=== PATIENT | male | born 1960 ===

== ENCOUNTER 2017-03-21 16:18 | Inpatient (IN) ==
[2017-03-21] MEDS ORDERED: IOPAMIDOL 100 ML BOTTLE IJ ONE (16:19)
[2017-03-21] MEDS ORDERED: 0.9 % SODIUM CHLORIDE 1,000 ML IV ONE (16:34)
[2017-03-21] MEDS ORDERED: ONDANSETRON 4 MG/2 ML VIAL IV ONE (16:34)
--- NOTE | 2017-03-21 16:35 | Emergency Department Note ---
Abdominal Pain HPI - General Chief Complaint: Abdominal Pain Stated Complaint: n/v abd pain Time Seen by Provider: 03/21/17 16:32 Source: patient Mode of arrival: wheelchair Limitations: no limitations - History of Present Illness HPI Narrative: Patient has had epigastric pain last 3 days with nausea and vomiting. He was sent to [facility] and had a pancreatic stent placed a few weeks ago and is supposed to come out on the . - Related Data Home Medications Medication Instructions Recorded Confirmed Lisinopril [Zestril] 20 mg PO DAILY 11/25/16 03/21/17 oxyCODONE HCL [Oxycodone HCl] 5 mg PO TID 11/25/16 03/21/17 Allergies Allergy/AdvReac Type Severity Reaction Status Date / Time hydrocodone AdvReac Intermediate Vomiting Verified 12/28/16 15:39 meperidine [From Demerol] AdvReac Intermediate Vomiting Verified 12/28/16 15:39 Review of Systems All systems ED: reviewed and negative except as stated. Abdominal Pain PMH - Past Medical History Medical history: Reports: cancer (Bladder), hypertension, other (history of pancreatitis) Family history: Reports: no significant family history, other (Father age 57 from congestive heart failure and father age 37 from a heart attack mother age 56 lung cancer Sister age 50 lymphoma) - Social History Smoking status: Current every day smoker Alcohol use: Reports: None Drug use: Reports: none Physical Exam - General Limitations: no limitations General appearance: alert, in no apparent distress - Head Head exam: atraumatic - Eye Eye exam: Present: normal appearance - ENT ENT exam: normal exam - Neck Neck exam: Present: normal inspection - Chest Chest inspection: Present: normal inspection - Respiratory Respiratory exam: Present: normal lung sounds bilaterally - Cardiovascular Cardiovascular exam: Present: regular rate, normal rhythm, normal heart sounds - Abdominal Exam Abdominal exam: Present: soft, tenderness. Absent: distention, guarding, rebound, rigidity Abdominal tenderness: Present: epigastrium, moderate - Neurological Exam Neurological exam: Present: alert - Psychiatric Psychiatric exam: Present: normal affect, normal mood - Skin Skin exam: Present: warm, dry, intact Course Vital Signs Temperature 96.9 F L 03/21/17 16:21 Pulse Rate 93 H 03/21/17 16:21 Respiratory Rate 20 03/21/17 16:21 Blood Pressure 74/63 03/21/17 16:21 Pulse Oximetry (%) 100 03/21/17 16:21 Temperature 96.9 F L 03/21/17 16:21 Pulse Rate 101 H 03/21/17 18:01 Respiratory Rate 20 03/21/17 19:49 Blood Pressure 114/63 03/21/17 19:46 Pulse Oximetry (%) 92 03/21/17 18:01 Abdominal Pain - MDM Narrative Medical decision making narrative: This patient has uncomplicated pancreatitis and was admitted to the hospital by Dr. Lentz - Lab Data Lab results reviewed: Yes I reviewed the patient's lab results. Result diagrams: 03/21/17 16:40 03/21/17 16:40 Lab Results 03/21/17 03/21/17 Range/Units 16:40 16:40 WBC 14.5 H (4.5-11.0) K/mcL RBC 5.82 (4.50-5.90) M/mcL Hgb 17.8 H (13.5-16.5) g/dL Hct 53.0 (41.0-55.0) % MCV 91.0 (80.0-100.0) fL MCH 30.6 (26.0-34.0) pg MCHC 33.6 (31.0-36.0) g/dL RDW 13.2 (11.5-14.5) % Plt Count 370 (140-440) K/mcL MPV 8.1 (7.4-10.4) fL Gran % 73.2 (38.0-78.0) % Lymph % (Auto) 20.0 (15.5-49.0) % Adams % (Auto) 6.0 (1.0-12.0) % Eos % (Auto) 0.3 (0.0-7.0) % Baso % (Auto) 0.5 (0.0-2.0) % Gran # 10.6 H (1.8-8.0) K/mcL Lymph # (Auto) 2.9 (1.5-4.8) K/mcL Adams # (Auto) 0.9 (0.1-0.9) K/mcL Eos # (Auto) 0 (0.0-0.7) K/mcL Baso # (Auto) 0.1 (0.0-0.3) K/mcL Sodium 131 L (133-145) mmol/L Potassium 4.3 (3.3-5.1) mmol/L Chloride 92 L (96-108) mmol/L Carbon Dioxide 21 L (22-30) mmol/L Anion Gap 18.0 H (8-16) BUN 33 H (6-20) mg/dl Creatinine 1.4 H (0.7-1.2) mg/dl GFR Calculation 56 Glucose 182 H (70-105) mg/dL Calcium 9.9 (8.6-10.4) mg/dl Total Bilirubin 1.0 (0.0-1.0) mg/dL AST 29 (0-37) U/l ALT 37 (0-40) U/l Alkaline Phosphatase 95 (39-117) U/L Total Protein 8.4 (5.9-8.4) gm/dL Albumin 4.5 (3.2-5.2) gm/dL Globulin 3.9 H (2.2-3.7) gm/dL Albumin/Globulin Ratio 1.2 (1.0-2.3) Lipase 155 H (7-60) U/L - Radiology Data Radiology results reviewed: Yes I reviewed the patient's radiology results. Disposition Pt seen by RN CONCURRENT REVIEW/PA only: No Clinical Impression: Pancreatitis Disposition: Xfer As Inpt ([facility]) Condition: Good Time of Disposition: 20:29
[2017-03-21] MEDS: HYDROmorphone 2 MG/ML SYRINGE IV PRN ×4 (16:53→23:11)
[2017-03-21 17:04] LABS: Basophils # (Auto) 0.1 K/mcL (0.0-0.3); Basophils % (Auto) 0.5 % (0.0-2.0); Eosinophils # (Auto) 0 K/mcL (0.0-0.7); Eosinophils % (Auto) 0.3 % (0.0-7.0); Granulocytes % (Auto) 73.2 % (38.0-78.0); Lymphocytes # (Auto) 2.9 K/mcL (1.5-4.8); Mean Corpuscular HGB Conc 33.6 g/dL (31.0-36.0); Mean Corpuscular Hemoglobin 30.6 pg (26.0-34.0); Monocytes # (Auto) 0.9 K/mcL (0.1-0.9); Platelet Count 370 K/mcL (140-440); RBC 5.82 M/mcL (4.50-5.90); Red Cell Distribution Width 13.2 % (11.5-14.5)
[2017-03-21 17:22] LABS: ALT/SGPT 37 U/l (0-40); Albumin 4.5 gm/dL (3.2-5.2); Albumin/Globulin Ratio 1.2 (1.0-2.3); Alkaline Phosphatase 95 U/L (39-117); Blood Urea Nitrogen 33 mg/dl (6-20); Lipase 155 U/L (7-60)
--- NOTE | 2017-03-21 19:17 | Cat Scan Report ---
CLINICAL INFORMATION: History of pancreatitis - abdominal pain COMPARISON: Abdomen and pelvic CT from 12/28/2016 TECHNIQUE: Following enteric contrast, 80 cc of Isovue-300 were injected intravenously, and 60 seconds later, 2.5 mm helical slices were obtained from the mid heart through the subtrochanteric regions. Following reconstruction, 2.5 mm sagittal, coronal and axial reformatted images were processed and reviewed at bone, lung and soft tissue windows. Five minutes later, 5 mm helical slices were obtained from the mid heart through the kidneys and viewed at soft tissue windows. FINDINGS: Lung bases show no abnormality - no effusion. Visualized heart is unremarkable. Images through the abdomen show mild fatty change within the liver which is stable. A 9 mm bilobed cyst right hepatic lobe is again noted. There is more heavily concentrated fat in the region of zeyad hepatis. Gallbladder is surgically absent. The intrahepatic ducts are unremarkable. The common bile duct is moderately dilated (13 mm), but unchanged with findings compatible post cholecystomy papillary stenosis. Spanning up to 6.4 mm Both Wirsing and Santorini duct are moderately dilated and irregular (6 mm) There is a 9 mm stone in the distal portion of worsening duct and a 4 mm stone within a proximal accessory duct. A stent is been placed through the accessory papilla: The proximal end is seen just upstream from the largest stone. It does appear to be improving pancreatic drainage as Santorini duct has decreased from the previous study that time was 7 mm. The pancreatic parenchyma is unremarkable: There is no evidence of inflammation. Both kidneys, adrenal glands, spleen are normal. A 3.7 cm suprarenal abdominal aortic aneurysm is appreciated which is unchanged. There is no free air, free fluid and no adenopathy. The stomach, small large bowel are normal images of pelvis show urinary bladder prostate seminal vesicles to be unremarkable. Bone windows show no osseous abnormality IMPRESSION: 1. Since previous study, a short double pigtail pancreatic stent has been placed into the accessory pancreatic duct pigtail into the Wirsung's/Santorini duct junction. The stent is just upstream from two stones within the Wirsung' duct, nine and 4 mm respectively. The upstream Santorini duct has decreased from 7 to 6 mm implying that the pancreatic stent is functional. The pancreas is otherwise normal and does not demonstrate vito inflammation. 2. Moderate dilatation of the common bile duct compatible with post cholecystomy papillary stenosis - no change. 3. 3.7 cm aneurysm - suprarenal abdominal aorta 4. 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 The SMA is widely patent. Patient is at risk for mesenteric ischemia Interpreted and Authenticated by: Valeriano Garduno 03/21/17
[2017-03-21] MEDS ORDERED: HYDROmorphone 2 MG/ML SYRINGE IV ONE (20:33)
[2017-03-21] MEDS ORDERED: ASPIRIN 81 MG TAB.CHEW CHEWED ONE (20:58)
[2017-03-21] MEDS ORDERED: NITROGLYCERIN 0.4 MG TAB.SUBL SL PRN ×2 (21:00→22:17)
--- NOTE | 2017-03-21 21:32 | Internal Med History&Physical ---
Medical - H&P: HPI Patient information: Note initiated : 03/21/17 at 9:29 pm Service Date, if different from initiated Date: [] Patient: Dave Patricio 56 y/o M admitted on for n/v abd pain. Chief Complaint: [] History of present illness: Mr. Patricio is a 56 year old Male with h/o pancreatic divisum presents to the hospital with h/o abdominal pain, nausea and vomiting x 3 days The patient has chr and intermittent episodes of abdominal pain, which he attributes to his pancreas abnormality. The last flare up they found stones in the pancreatic duct, and he had a stent placed. The patient was doing fine untill 3 days ago when he noted pain in the abdomen, bakari umbilical, sharp, intermittent radiating to the back, worse with legs bended/ curled, better when lying flat. Associated with some nausea and vomiting. No blood in vomit. Given that the patient symptoms were not getting better over 3 days he decided to come to the ER for further evaluation In the ER he had mildly elevated lipase at 125, elevated wbc at 14K, elevated hb (which appears concentrated) mildly elevated renal function creat of 1.4. His CT abdomen was negative for acute pancreatitis, and the stent was functioning properly. The patient given was unable to tolerate po and was still in pain was admitted to the hospital for further management The patient also admitted to having chr chest pains, on the retrosternal, sharp , pressure like, non radiating, no aggravating or reliving factors, last episode was this AM. The patient had another episode of chest apin in the ER after my initial eval, his ECG was negative for acute ST wave changes. and he was given ASA and NTG with some relief. Trop was ordered and he was admitted to [facility]. The patient reports that these episodes are chr for him going on for few years, he has had a stress test done in the last 2 years which was negative. Review of systems: CONSTITUTIONAL: No weight loss, fever, chills, weakness or fatigue. HEENT: Eyes: No visual loss, blurred vision, double vision or yellow sclerae. Ears, Nose, Throat: No hearing loss, sneezing, congestion, runny nose or sore throat. SKIN: No rash or itching. CARDIOVASCULAR: chr chest pain, no shortness of breath, no palpitations, no dizziness or syncope.. RESPIRATORY: No shortness of breath, cough or sputum. GASTROINTESTINAL: present abdominal pain, nausea and vomiting, chr constipatin , no diarrhea, no blood in stool or vomitus. GENITOURINARY: Denies Burning on urination. Blood in urine, or foul smelling urine NEUROLOGICAL: No headache, dizziness, syncope, paralysis, tremors, numbness or tingling in the extremities. No change in bowel or bladder control. MUSCULOSKELETAL: No muscle, back pain, joint pain or stiffness. HEMATOLOGIC: No bleeding or bruising. No enlarged nodes PSYCHIATRIC: No depression or anxiety. ENDOCRINOLOGIC: No reports of sweating, cold or heat intolerance. No polyuria or polydipsia. ALLERGIES: No hives, eczema or rhinitis. Skin: No rash, no jaundice, cyanosis or pallor. Medical - H&P: PMH Medical history: Pancreas divisum CA bladder HTN IBS Aortic aneurysm Surgical history: pancreas surgery Hernia surgery/ mesh placement Pertinent family history: Father - chf Mother lymphoma Sister Lung cancer Social history: 2 cigs a day at present, h/o 20 pack yr never etoh Denies any recreational drug use. Medical - H&P: Meds Home Medications Medication Instructions Recorded Confirmed Type Lisinopril [Zestril] 20 mg PO DAILY 11/25/16 03/21/17 History oxyCODONE HCL [Oxycodone HCl] 5 mg PO TID 11/25/16 03/21/17 History Allergies Allergy/AdvReac Type Severity Reaction Status Date / Time hydrocodone AdvReac Mild Vomiting Verified 03/21/17 22:18 meperidine [From Demerol] AdvReac Mild Vomiting Verified 03/21/17 22:18 Medical - H&P: Exam - Constitutional Vitals: Temp Pulse Resp BP Pulse Ox 96.9 F L 101 H 20 114/63 92 03/21/17 16:21 03/21/17 18:01 03/21/17 19:49 03/21/17 19:46 03/21/17 18:01 Exam: GENERAL: The patient is a well-developed, well-nourished in no apparent distress. Is alert and oriented x3. VITAL SIGNS: Reviewed and as noted elsewhere. HEENT: Head is normocephalic and atraumatic. Extraocular muscles are intact. Pupils are equal, round, and reactive to light. Nares appeared normal. Mouth appears any without lesions. Mucous membranes are moist. NECK: Normal to inspection, Supple, No lymphadenopathy or thyromegaly. LUNGS: Air entry equal on both sides, no wheezing, crackles or rhonchi noted. No accessory muscles of respiration HEART: Regular rate and rhythm normal, S1 and S2 heard, no Gallop, S3 or Rub Noted, No Gross murmur heard. ABDOMEN: Soft, some sorness in the bakari umbilical region, no guarding or rigidity, no rebound tenderness,abdomen is nondistended. Positive bowel sounds. No hepatosplenomegaly was noted. EXTREMITIES: No cyanosis, clubbing, rash, lesions or edema. NEUROLOGIC: Cranial nerves II through XII are grossly intact. Motor and Sensory System Grossly Intact PSYCHIATRIC: Normal affect, Normal Mood. Appropriate Behavior. SKIN: No ulceration or wounds noted, No jaundice, No rash noted. Medical - H&P: Reslt - Labs CBC & Chem 7: 03/21/17 16:40 03/21/17 16:40 Labs: Short CBC 03/21/17 Range/Units 16:40 WBC 14.5 H (4.5-11.0) K/mcL Hgb 17.8 H (13.5-16.5) g/dL Hct 53.0 (41.0-55.0) % Plt Count 370 (140-440) K/mcL BMP 03/21/17 16:40 Sodium 131 L Potassium 4.3 Chloride 92 L Carbon Dioxide 21 L BUN 33 H Creatinine 1.4 H Glucose 182 H Calcium 9.9 Liver Function 03/21/17 Range/Units 16:40 Total Bilirubin 1.0 (0.0-1.0) mg/dL AST 29 (0-37) U/l ALT 37 (0-40) U/l Alkaline Phosphatase 95 (39-117) U/L Albumin 4.5 (3.2-5.2) gm/dL Medical - H&P: A/P - Narrative A/P Narrative: A/P Acute on Chr Pancreatitis: Mildly elevated lipase, associated with nausea and vomiting, CT neg for acute changes, NPO for now, IV fluids and pain management monitor. check urine drug screen. etiology of this flare up not know. Leucocytosis: elevated wbc as well as elevated hb, likely from hemoconcentration. X ray is neg to my read, await official read, get ua, Acute Kidney Injury : Creat 1.4, pre renal, IV fluids for now, monitor renal function. Chest pain: chr in nature, etiology? cardiac? has neg stress test in less than 2 yrs which is reassuring, EKG is neg, asa and ntg prn, start on metoprolol 25mg gid, check lipid and a1c. Trend troponin. HTN: Patient bp stable, hold lisinopril for now, on metoprolol Aortic Aneurysm: noted on CT in november and now, needs repeat CT in 1 yr/ USG in 1 yr Smoker: advised to quit DVT hep sq Full code NPO diet for now.
[2017-03-21] MEDS ORDERED: MAGNESIUM HYDROXIDE 30 ML ORAL.SUSP PO PRN (22:17)
[2017-03-21] MEDS ORDERED: NALOXONE HCL 0.4 MG/ML VIAL IV PRN (22:17)
[2017-03-21] MEDS ORDERED: ACETAMINOPHEN 325 MG TABLET PO PRN (22:17)
[2017-03-21] MEDS: HEPARIN 5,000 UNIT/ML VIAL SQ SCH (23:10)
[2017-03-21] MEDS: PANTOPRAZOLE 40 MG VIAL IV SCH (23:10)
[2017-03-21] MEDS: DEXTROSE 5%-1/2NS 1,000 ML IV SCH (23:12)
[2017-03-21] MEDS: 0.9 % SODIUM CHLORIDE 10 ML SYRINGE IV SCH (23:12)
[2017-03-21] MEDS: METOPROLOL TARTRATE 25 MG TABLET PO SCH (23:22)
[2017-03-22] MEDS: HYDROmorphone 2 MG/ML SYRINGE IV PRN ×7 (03:06→20:18)
[2017-03-22 04:09] LABS: Appearance,Urine CLOUDY; Bacteria,Urine 0 /hpf (0); Bilirubin,Urine NEG (NEG); Color,Urine YELLOW; Glucose,Urine (UA) NEGATIVE (NEG); Leukocyte Esterase,Urine NEG /uL (NEG); Nitrate,Urine NEG (NEG); Protein,Urine 100 mg/dL (NEG); Specific Gravity,Urine 1.015 (1.000-1.035); Urine Blood 0.03 mg/dL (<0.03); Urine Granular Cast 10 /lpf (0); Urine Hyaline Cast 2 /lpf (0-2); Urine RBC 2 /hpf (0-1); Urine Squamous Epithelial Cell < 1 /hpf (0-4); Urine Transitional Epi Cells < 1 /hpf (0-2); Urine WBC 3 /hpf (0-4); Urobilinogen,Urine NEG (NEG)
[2017-03-22 04:15] LABS: Amphetamine Screen,Urine SUSPECT POSITIVE (NONDETECTED); Benzodiazepines Screen,Urine SUSPECT POSITIVE (NONDETECTED); Cocaine Screen,Urine NONE DETECTED (NONDETECTED); Opiate Screen,Urine SUSPECT POSITIVE (NONDETECTED); Oxycodone, Urine Screen NONE DETECTED (NONDETECTED)
--- NOTE | 2017-03-22 05:25 | XRay Report ---
CLINICAL INFORMATION: Chest pain and elevated white blood cell count COMPARISON: 04/16/2008. FINDINGS:The heart size, mediastinum and pulmonary vessels are unremarkable. The lungs are clear. There are no effusions. The bones and soft tissues are within normal limits. IMPRESSION: Normal chest. Interpreted and Authenticated by: Valeriano Garduno 03/22/17
[2017-03-22] MEDS: 0.9 % SODIUM CHLORIDE 10 ML SYRINGE IV SCH ×3 (05:51→20:25)
[2017-03-22 05:57] LABS: Basophils # (Auto) 0.1 K/mcL (0.0-0.3); Basophils % (Auto) 0.5 % (0.0-2.0); Eosinophils # (Auto) 0.3 K/mcL (0.0-0.7); Eosinophils % (Auto) 1.9 % (0.0-7.0); Granulocytes % (Auto) 54.7 % (38.0-78.0); Lymphocytes # (Auto) 4.7 K/mcL (1.5-4.8); Lymphocytes % (Auto) 32.4 % (15.5-49.0); Mean Cell Volume 91.7 fL (80.0-100.0); Mean Corpuscular HGB Conc 33.4 g/dL (31.0-36.0); Mean Corpuscular Hemoglobin 30.6 pg (26.0-34.0); Monocytes # (Auto) 1.5 K/mcL (0.1-0.9); Monocytes % (Auto) 10.5 % (1.0-12.0); Platelet Count 366 K/mcL (140-440); RBC 4.98 M/mcL (4.50-5.90); Red Cell Distribution Width 13.5 % (11.5-14.5)
[2017-03-22 06:25] LABS: ALT/SGPT 31 U/l (0-40); Albumin/Globulin Ratio 1.3 (1.0-2.3); Alkaline Phosphatase 78 U/L (39-117); Bilirubin,Direct < 0.2 mg/dL (0.0-0.3); Blood Urea Nitrogen 41 mg/dl (6-20); Gamma Glutamyl Transpeptidase 45 U/L (8-61); Magnesium 2.1 mg/dL (1.6-2.5)
[2017-03-22 06:44] LABS: Hemoglobin A1C 6.7 % HGB (4.0-6.0)
[2017-03-22] MEDS: PANTOPRAZOLE 40 MG VIAL IV SCH ×2 (06:57→16:44)
[2017-03-22] MEDS: METOPROLOL TARTRATE 25 MG TABLET PO SCH ×2 (09:52→20:18)
[2017-03-22] MEDS: DEXTROSE 5%-1/2NS 1,000 ML IV SCH (09:52)
[2017-03-22] MEDS: HEPARIN 5,000 UNIT/ML VIAL SQ SCH ×2 (09:53→20:18)
[2017-03-22] MEDS: ASPIRIN 81 MG TAB.CHEW PO SCH (09:53)
--- NOTE | 2017-03-22 11:46 | Internal Med Progress Note ---
Medical - PN: Subj Patient information: Note initiated : 03/22/17 at 11:46 am Patient: Dave Patricio 56 y/o M admitted on 03/21/17 for N/V Abd Pain/ Pancreatitis. Interval history: March 21, 2017: History of present illness: Mr. Patricio is a 56 year old Male with h/o pancreatic divisum presents to the hospital with h/o abdominal pain, nausea and vomiting x 3 days The patient has chr and intermittent episodes of abdominal pain, which he attributes to his pancreas abnormality. The last flare up they found stones in the pancreatic duct, and he had a stent placed. The patient was doing fine untill 3 days ago when he noted pain in the abdomen, bakari umbilical, sharp, intermittent radiating to the back, worse with legs bended/ curled, better when lying flat. Associated with some nausea and vomiting. No blood in vomit. Given that the patient symptoms were not getting better over 3 days he decided to come to the ER for further evaluation . In the ER he had mildly elevated lipase at 125, elevated wbc at 14K, elevated hb (which appears concentrated) mildly elevated renal function creat of 1.4. His CT abdomen was negative for acute pancreatitis, and the stent was functioning properly. The patient given was unable to tolerate po and was still in pain was admitted to the hospital for further management The patient also admitted to having chr chest pains, on the retrosternal, sharp , pressure like, non radiating, no aggravating or reliving factors, last episode was this AM. The patient had another episode of chest pain in the ER after my initial eval, his ECG was negative for acute ST wave changes. and he was given ASA and NTG with some relief. Trop was ordered and he was admitted to [facility]. The patient reports that these episodes are chr for him going on for few years, he has had a stress test done in the last 2 years which was negative. March 22: Today, the patient notes he continues to have fairly significant abdominal pain , which he rates as 8 out of 10. He says, however, that he usually has high level chronic abdominal pain. He does not really seem certain if the pain is better than yesterday. He is quite insistent about being started on a clear liquid diet, as he feels like he is starving. He otherwise has not had recurrent nausea, vomiting, diarrhea. He notes that he has had chronic abdominal pain for years, since he was diagnosed with chronic pancreatitis. He was treated with a pancreatic duct stent about 2 months ago, and says his pain seem like it is gotten a lot better since then, until he was readmitted here. CT scan also is suggestive of compromised mesenteric artery blood flow. The patient does not think that anyone has suggested doing anything about that so far. His pain usually is after eating, but that has always been thought due to the pancreatitis. The pain this time is similar to previous bouts of pancreatitis. Otherwise, he denies subjective fever or chills. He does continue to have chronic intermittent right-sided chest pain. He reports he has had previous cardiac workup that was negative. He denies shortness of breath or cough, vomiting or diarrhea, dysuria. - Constitutional Vitals: Vital Signs Temp Pulse Resp BP Pulse Ox 97.9 F 74 20 118/69 97 03/22/17 08:00 03/22/17 05:42 03/22/17 08:00 03/22/17 08:00 03/22/17 08:00 Period Temp Pulse Resp BP Sys/Torres Pulse Ox Last 24 Hr 96.7 F-97.9 F 68-74 12-20 111-129/69-84 95-97 Intake and Output 03/21/17 03/22/17 03/22/17 21:59 05:59 13:59 Intake Total 0 / 0 896 / 896 Output Total 200 / 200 275 / 275 Balance -200 / -200 621 / 621 Intake & Output: Intake & Output 03/21/17 03/22/17 03/22/17 21:59 05:59 13:59 Intake Total 0 / 0 896 / 896 Output Total 200 / 200 275 / 275 Balance -200 / -200 621 / 621 Intake: IV 896 / 896 Dextrose 5%-1/2Ns IV 896 / 896 Solution 1,000 ml @ 84 mls/hr IV .[id number] [facility] Rx #:[id number] Oral 0 / 0 Output: Void Amount 200 / 200 275 / 275 On exam, he is a well-developed well-nourished man, who appears older than his stated age. He does not appear particularly uncomfortable. Temperature is 98.1, heart rate 67, blood pressure 118/73, O2 saturation 95% on 1.5 L nasal cannula. Neck is supple without obvious lymphadenopathy or JVD. Cardiac exam shows regular rate and rhythm. Lungs: Have some soft scattered wheezes bilaterally. There is no accessory muscle use. There are no definite crackles or rhonchi. Abdomen: Is somewhat firm, but nontender to palpation. There is no rebound. Bowel sounds are quite active. Extremities show no edema. Medical - PN: Obj Da - Labs CBC & Chem 7: 03/22/17 04:22 03/22/17 04:22 Labs: Abnormal Lab Results 03/22/17 03/22/17 03/22/17 04:22 04:22 04:22 WBC 14.6 H [place] # (Auto) 1.5 H BUN 41 H Creatinine 1.4 H Hemoglobin A1c 6.7 H Uric Acid 9.0 H Triglycerides 215 H 218 H Non-HDL Cholesterol 135 H HDL Cholesterol 34 L Amylase 104 H Lipase 88 H Urine Protein Urine Occult Blood Urine RBC Granular Casts Urine Opiates Screen Ur Amphetamines Screen U Benzodiazepines Scrn U Marijuana (THC) Screen 03/22/17 03/22/17 03:09 03:08 WBC [place] # (Auto) BUN Creatinine Hemoglobin A1c Uric Acid Triglycerides Non-HDL Cholesterol HDL Cholesterol Amylase Lipase Urine Protein 100 A Urine Occult Blood 0.03 A Urine RBC 2 H Granular Casts 10 H Urine Opiates Screen Suspect positive A Ur Amphetamines Screen Suspect positive A U Benzodiazepines Scrn Suspect positive A U Marijuana (THC) Screen Suspect positive A March 22: Hemoglobin A1c is elevated at 6.7%. Triglycerides are elevated at 215, total cholesterol 169, LDL 93, HDL 34 Amylase elevated at 104 Lipase elevated at 88 March 21: CBC: White blood cell count 14,000, hemoglobin 17, hematocrit 53, granulocyte count 10,600. Abdominal CT: Shows pancreatic stones, as well as a new short double pigtail pancreatic stent into the accessory pancreatic duct. It appears to be functioning. No other signs of inflammation. 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 3.7 cm suprarenal abdominal aortic aneurysm. 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 Increased risk for mesenteric ischemia. Chest x-ray: Was read as normal. Lactic acid was normal at 1.5 Pro-calcitonin is normal at 0.14 Urinalysis shows 100 mg of protein, 2 red blood cells, 10 granular casts, negative leukocyte esterase and nitrites. EKG shows normal sinus rhythm at a rate of about 90. Normal axis. Fairly frequent ectopy, probable PVCs. Tox screen: Is positive for opiates, amphetamines, benzodiazepines, marijuana Chemistry panel: Sodium 131, potassium 4.3, chloride 92, CO2 21, anion gap is elevated at 18, BUN is elevated at 33, creatinine 1.4, glucose 182 Lipase is elevated at 155 Meds: Medications Acetaminophen (Tylenol) 650 mg PO Q6HP PRN PRN Reason: PAIN/FEVER > 101 Aspirin (Aspirin) 81 mg PO DAILY [facility] Last Admin: 03/22/17 09:53 Dose: 81 mg Heparin Sodium (Porcine) (Heparin) 5,000 unit SQ Q12 [facility] Last Admin: 03/22/17 09:53 Dose: 5,000 unit Hydromorphone HCl (Dilaudid) 0.5 mg IV Q2HP PRN PRN Reason: Pain, severe, score 7-10 Last Admin: 03/22/17 11:17 Dose: 0.5 mg Dextrose/Sodium Chloride (Dextrose 5%-1/2ns Iv Solution) 1,000 mls @ 84 mls/hr IV .[id number] [facility] Last Admin: 03/22/17 09:52 Dose: 84 mls/hr Magnesium Hydroxide (Milk Of Magnesia) 30 ml PO DAILYP PRN PRN Reason: Constipation Metoprolol Tartrate (Lopressor) 25 mg PO BID [facility] Last Admin: 03/22/17 09:52 Dose: 25 mg Naloxone HCl (Narcan) 0.1 mg IV Q2MIN PRN PRN Reason: Opiate Reversal Nitroglycerin (Nitrostat) 0.4 mg SL Q5M PRN PRN Reason: Chest Pain Ondansetron HCl (Zofran) 4 mg IV Q6HP PRN PRN Reason: Nausea And Vomiting Oxycodone HCl (Roxicodone) 5 mg PO Q4HP PRN PRN Reason: Pain, score 4-7 Pantoprazole Sodium (Protonix) 40 mg IV BIDAC [facility] Last Admin: 03/22/17 06:57 Dose: 40 mg Sodium Chloride (Saline Flush) 10 ml IV Q8 [facility] Last Admin: 03/22/17 05:51 Dose: Not Given Medical - PN: A/P - Time Spent With Patient Total time spent is greater than 50% in coordination of care (as documented) at patient's floor/unit and/or counseling patient: Greater than 35 minutes - Narrative A/P Narrative: #1. GI. Patient presents with abdominal pain associated with nausea and vomiting, and probable dehydration. Symptoms are consistent with recurrent pancreatitis, although patient is also at risk for mesenteric ischemia, given his CT findings. -Patient was admitted and placed on bowel rest and IV fluids and pain meds. Today he is quite hungry and is insisting on trying a liquid diet. Amylase and lipase are a bit improved today, so we will try a clear liquid diet. I reviewed with him that that may make him worse, and that if it does we will have to go back to n.p.o. -He is also at high risk for mesenteric ischemia. I think a follow-up with Dr. Byrd at some point would be appropriate. 2. Infectious disease. Patient does present with leukocytosis. We have no obvious source of infection at this time. 3. Renal. Patient presents with acute renal insufficiency. This is likely due to poor oral intake. IV fluids, monitor. 4. Cardiac. Patient reports chronic intermittent right-sided chest pain. He reports previous cardiac workup was negative. It is not clear to me if he has been worked up for PE in the past. He may be at risk for this. -Consider d-dimer and CT angiogram, although I would wait a couple of days before giving him more , and given his renal function. 5. Hypertension. Continue metoprolol. Lisinopril on hold, as this can also trigger pancreatitis. 6. Vascular. Patient presents with evidence of mesenteric arterial stenosis. He also has an aortic aneurysm noted on his CT scan, and that will need to be followed up in 6- 12 months. 7. Tobacco abuse. -patient needs to be discouraged from doing any smoking at all at this point. 8. CODE STATUS: Full code. 9. DVT prophylaxis: Subcu heparin. 10. Endocrine. Patient presents with hyperglycemia and a mildly elevated DEBORAH globin A1c. Check Accu-Cheks and cover with sliding scale insulin as needed. He may have declining pancreatic function.
[2017-03-22] MEDS: ONDANSETRON 4 MG/2 ML VIAL IV PRN (16:44)
[2017-03-22] MEDS: oxyCODONE HCL 5 MG TABLET PO PRN ×2 (16:44→20:18)
[2017-03-22] MEDS ORDERED: DEXTROSE 50% 50 ML VIAL IV PRN (17:09)
[2017-03-22] MEDS ORDERED: DEXTROSE 31 GM ORAL.SUSP PO PRN (17:09)
[2017-03-22] MEDS: INSULIN LISPRO 1 UNIT/0.01 ML UNIT SQ SCH (20:20)
[2017-03-22] MEDS: POTASSIUM CHLORIDE 10 MEQ in 0.45 % SODIUM CHLORIDE 1,000 ML IV SCH ×2 (20:25→22:49)
[2017-03-22] MEDS ORDERED: POTASSIUM CHLORIDE 20 MEQ/10 ML VIAL IV ONE (22:55)
[2017-03-23] MEDS: oxyCODONE HCL 5 MG TABLET PO PRN ×3 (01:35→21:58)
[2017-03-23] MEDS: POTASSIUM CHLORIDE 10 MEQ in 0.45 % SODIUM CHLORIDE 1,000 ML IV SCH ×2 (03:23→08:04)
[2017-03-23 04:55] LABS: Basophils # (Auto) 0.1 K/mcL (0.0-0.3); Basophils % (Auto) 0.6 % (0.0-2.0); Eosinophils # (Auto) 0.3 K/mcL (0.0-0.7); Eosinophils % (Auto) 2.9 % (0.0-7.0); Granulocytes % (Auto) 56.1 % (38.0-78.0); Lymphocytes # (Auto) 3.4 K/mcL (1.5-4.8); Lymphocytes % (Auto) 32.1 % (15.5-49.0); Mean Cell Volume 91.1 fL (80.0-100.0); Mean Corpuscular HGB Conc 33.9 g/dL (31.0-36.0); Mean Corpuscular Hemoglobin 30.9 pg (26.0-34.0); Monocytes # (Auto) 0.9 K/mcL (0.1-0.9); Monocytes % (Auto) 8.3 % (1.0-12.0); Platelet Count 296 K/mcL (140-440); Red Cell Distribution Width 12.9 % (11.5-14.5)
[2017-03-23 05:18] LABS: Amylase 118 U/L (28-100); Lipase 117 U/L (7-60)
[2017-03-23 05:23] LABS: ALT/SGPT 33 U/l (0-40); Albumin 3.7 gm/dL (3.2-5.2); Albumin/Globulin Ratio 1.2 (1.0-2.3); Alkaline Phosphatase 79 U/L (39-117); Bilirubin,Direct < 0.2 mg/dL (0.0-0.3); Blood Urea Nitrogen 27 mg/dl (6-20); Gamma Glutamyl Transpeptidase 56 U/L (8-61); Uric Acid 8.2 mg/dL (2.5-8.0)
[2017-03-23] MEDS: 0.9 % SODIUM CHLORIDE 10 ML SYRINGE IV SCH ×3 (05:37→22:03)
[2017-03-23] MEDS: INSULIN LISPRO 1 UNIT/0.01 ML UNIT SQ SCH ×4 (07:45→22:02)
[2017-03-23] MEDS: PANTOPRAZOLE 40 MG VIAL IV SCH ×2 (07:45→17:29)
[2017-03-23] MEDS: HEPARIN 5,000 UNIT/ML VIAL SQ SCH ×2 (09:14→22:01)
[2017-03-23] MEDS: TAMSULOSIN 0.4 MG CAPSULE PO SCH (09:15)
[2017-03-23] MEDS: LISINOPRIL 20 MG TABLET PO SCH (09:15)
[2017-03-23] MEDS: METOPROLOL TARTRATE 25 MG TABLET PO SCH ×2 (09:15→21:58)
[2017-03-23] MEDS: ASPIRIN 81 MG TAB.CHEW PO SCH (09:15)
[2017-03-23] MEDS: ONDANSETRON 4 MG/2 ML VIAL IV PRN ×2 (11:58→23:57)
--- NOTE | 2017-03-23 13:24 | Internal Med Progress Note ---
Medical - PN: Subj Patient information: Note initiated : 03/23/17 at 1:24 pm Patient: Dave Patricio 56 y/o M admitted on 03/21/17 for N/V Abd Pain/ Pancreatitis. Interval history: March 21, 2017: History of present illness: Mr. Patricio is a 56 year old Male with h/o pancreatic divisum presents to the hospital with h/o abdominal pain, nausea and vomiting x 3 days The patient has chr and intermittent episodes of abdominal pain, which he attributes to his pancreas abnormality. The last flare up they found stones in the pancreatic duct, and he had a stent placed. The patient was doing fine untill 3 days ago when he noted pain in the abdomen, bakari umbilical, sharp, intermittent radiating to the back, worse with legs bended/ curled, better when lying flat. Associated with some nausea and vomiting. No blood in vomit. Given that the patient symptoms were not getting better over 3 days he decided to come to the ER for further evaluation . In the ER he had mildly elevated lipase at 125, elevated wbc at 14K, elevated hb (which appears concentrated) mildly elevated renal function creat of 1.4. His CT abdomen was negative for acute pancreatitis, and the stent was functioning properly. The patient given was unable to tolerate po and was still in pain was admitted to the hospital for further management The patient also admitted to having chr chest pains, on the retrosternal, sharp , pressure like, non radiating, no aggravating or reliving factors, last episode was this AM. The patient had another episode of chest pain in the ER after my initial eval, his ECG was negative for acute ST wave changes. and he was given ASA and NTG with some relief. Trop was ordered and he was admitted to [facility]. The patient reports that these episodes are chr for him going on for few years, he has had a stress test done in the last 2 years which was negative. March 22: Today, the patient notes he continues to have fairly significant abdominal pain , which he rates as 8 out of 10. He says, however, that he usually has high level chronic abdominal pain. He does not really seem certain if the pain is better than yesterday. He is quite insistent about being started on a clear liquid diet, as he feels like he is starving. He otherwise has not had recurrent nausea, vomiting, diarrhea. He notes that he has had chronic abdominal pain for years, since he was diagnosed with chronic pancreatitis. He was treated with a pancreatic duct stent about 2 months ago, and says his pain seem like it is gotten a lot better since then, until he was readmitted here. CT scan also is suggestive of compromised mesenteric artery blood flow. The patient does not think that anyone has suggested doing anything about that so far. His pain usually is after eating, but that has always been thought due to the pancreatitis. The pain this time is similar to previous bouts of pancreatitis. Otherwise, he denies subjective fever or chills. He does continue to have chronic intermittent right-sided chest pain. He reports he has had previous cardiac workup that was negative. He denies shortness of breath or cough, vomiting or diarrhea, dysuria. March 23: Today, the patient says he is feeling a bit better. He is really wanting to eat solid food. He rates his pain as a 6 or 7 out of 10, which he said is better than when he arrived. He did have a bowel movement earlier today. He otherwise denies fever or chills, chest pain or shortness of breath, nausea or vomiting, diarrhea, dysuria. - Constitutional Vitals: Vital Signs Temp Pulse Resp BP Pulse Ox 98.4 F 80 18 120/72 94 03/23/17 12:00 03/23/17 13:00 03/23/17 12:00 03/23/17 12:00 03/23/17 12:00 Period Temp Pulse Resp BP Sys/Torres Pulse Ox Last 24 Hr 97.7 F-100.5 F 69-85 16-18 120-159/72-86 94-96 Intake and Output 03/22/17 03/23/17 03/23/17 21:59 05:59 13:59 Intake Total 440 / 440 1650 / 1650 1545 / 1545 Output Total 350 / 350 700 / 700 625 / 625 Balance 90 / 90 950 / 950 920 / 920 Weight 192 lb Intake & Output: Intake & Output 03/22/17 03/23/17 03/23/17 21:59 05:59 13:59 Intake Total 440 / 440 1650 / 1650 1545 / 1545 Output Total 350 / 350 700 / 700 625 / 625 Balance 90 / 90 950 / 950 920 / 920 Weight 192 lb Intake: IV 1000 / 1000 1005 / 1005 Potassium Chloride 10 Meq 1005 / 1005 In Sodium Chloride 0.45% 1,000 ml @ 125 mls/hr IV .Q8H3M [facility] Rx#:[id number] Oral 440 / 440 650 / 650 540 / 540 Output: Void Amount 350 / 350 700 / 700 625 / 625 Other: Meal jello Percent of Meal Consumed 100% Feeding Ability Independent # Voids 1 1 # Bowel Movements 2 His family is in the room with him today. He is lying flat, smiling, in no acute distress. Temperature 98.4, heart rate 80, respiratory rate 18, blood pressure 120/72, O2 saturation 94% on room air Neck is supple without obvious lymphadenopathy or JVD. Cardiac exam shows regular rate and rhythm. Lungs are clear to auscultation. Abdomen is soft, with fairly minimal epigastric tenderness, without guarding or rebound. Bowel sounds are active. Extremities: Show no significant edema. Neurologic exam is grossly nonfocal. Medical - PN: Obj Da - Labs CBC & Chem 7: 03/23/17 03:27 03/23/17 03:27 Labs: Abnormal Lab Results 03/23/17 03/23/17 03/22/17 03:27 03:27 04:22 WBC [place] # (Auto) Sodium 132 L BUN 27 H Creatinine Hemoglobin A1c 6.7 H Uric Acid 8.2 H Phosphorus 2.2 L Triglycerides 225 H 215 H Non-HDL Cholesterol 135 H HDL Cholesterol 34 L Amylase 118 H 104 H Lipase 117 H 88 H Urine Protein Urine Occult Blood Urine RBC Granular Casts Urine Opiates Screen Ur Amphetamines Screen U Benzodiazepines Scrn U Marijuana (THC) Screen 03/22/17 03/22/17 03/22/17 04:22 04:22 03:09 WBC 14.6 H [place] # (Auto) 1.5 H Sodium BUN 41 H Creatinine 1.4 H Hemoglobin A1c Uric Acid 9.0 H Phosphorus Triglycerides 218 H Non-HDL Cholesterol HDL Cholesterol Amylase Lipase Urine Protein 100 A Urine Occult Blood 0.03 A Urine RBC 2 H Granular Casts 10 H Urine Opiates Screen Ur Amphetamines Screen U Benzodiazepines Scrn U Marijuana (THC) Screen 03/22/17 03:08 WBC [place] # (Auto) Sodium BUN Creatinine Hemoglobin A1c Uric Acid Phosphorus Triglycerides Non-HDL Cholesterol HDL Cholesterol Amylase Lipase Urine Protein Urine Occult Blood Urine RBC Granular Casts Urine Opiates Screen Suspect positive A Ur Amphetamines Screen Suspect positive A U Benzodiazepines Scrn Suspect positive A U Marijuana (THC) Screen Suspect positive A March 22: Hemoglobin A1c is elevated at 6.7%. Triglycerides are elevated at 215, total cholesterol 169, LDL 93, HDL 34 Amylase elevated at 104 Lipase elevated at 88 March 21: CBC: White blood cell count 14,000, hemoglobin 17, hematocrit 53, granulocyte count 10,600. Abdominal CT: Shows pancreatic stones, as well as a new short double pigtail pancreatic stent into the accessory pancreatic duct. It appears to be functioning. No other signs of inflammation. 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 3.7 cm suprarenal abdominal aortic aneurysm. 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 Increased risk for mesenteric ischemia. Chest x-ray: Was read as normal. Lactic acid was normal at 1.5 Pro-calcitonin is normal at 0.14 Urinalysis shows 100 mg of protein, 2 red blood cells, 10 granular casts, negative leukocyte esterase and nitrites. EKG shows normal sinus rhythm at a rate of about 90. Normal axis. Fairly frequent ectopy, probable PVCs. Tox screen: Is positive for opiates, amphetamines, benzodiazepines, marijuana Chemistry panel: Sodium 131, potassium 4.3, chloride 92, CO2 21, anion gap is elevated at 18, BUN is elevated at 33, creatinine 1.4, glucose 182 Lipase is elevated at 155 Meds: Medications Acetaminophen (Tylenol) 650 mg PO Q6HP PRN PRN Reason: PAIN/FEVER > 101 Aspirin (Aspirin) 81 mg PO DAILY [facility] Last Admin: 03/23/17 09:15 Dose: 81 mg Dextrose (Dextrose 50%) 0 ml IV UD PRN PRN Reason: Hypoglycemia Diagnostic Test (Pha) (Accu-Chek) 1 each FS ACHS [facility] Last Admin: 03/23/17 11:40 Dose: 1 each Glucose (Insta-Glucose) 15 gm PO PRN PRN PRN Reason: Hypoglycemia Heparin Sodium (Porcine) (Heparin) 5,000 unit SQ Q12 [facility] Last Admin: 03/23/17 09:14 Dose: 5,000 unit Hydromorphone HCl (Dilaudid) 0.5 mg IV Q2HP PRN PRN Reason: Pain, severe, score 7-10 Last Admin: 03/22/17 16:29 Dose: 0.5 mg Potassium Chloride 10 meq/ (Sodium Chloride) 1,005 mls @ 125 mls/hr IV .Q8H3M [facility] Last Admin: 03/23/17 08:04 Dose: 125 mls/hr Insulin Human Lispro (Humalog) 0 unit SQ ACHS [facility] PRN Reason: Protocol Last Admin: 03/23/17 11:41 Dose: Not Given Lisinopril (Zestril) 20 mg PO DAILY [facility] Last Admin: 03/23/17 09:15 Dose: 20 mg Magnesium Hydroxide (Milk Of Magnesia) 30 ml PO DAILYP PRN PRN Reason: Constipation Metoprolol Tartrate (Lopressor) 25 mg PO BID [facility] Last Admin: 03/23/17 09:15 Dose: 25 mg Naloxone HCl (Narcan) 0.1 mg IV Q2MIN PRN PRN Reason: Opiate Reversal Nitroglycerin (Nitrostat) 0.4 mg SL Q5M PRN PRN Reason: Chest Pain Ondansetron HCl (Zofran) 4 mg IV Q6HP PRN PRN Reason: Nausea And Vomiting Last Admin: 03/23/17 11:58 Dose: 4 mg Oxycodone HCl (Roxicodone) 5 mg PO Q4HP PRN PRN Reason: Pain, score 4-7 Last Admin: 03/23/17 06:30 Dose: 5 mg Pantoprazole Sodium (Protonix) 40 mg IV BIDAC [facility] Last Admin: 03/23/17 07:45 Dose: 40 mg Sodium Chloride (Saline Flush) 10 ml IV Q8 [facility] Last Admin: 03/23/17 05:37 Dose: Not Given Tamsulosin HCl (Flomax) 0.4 mg PO DAILY [facility] Last Admin: 03/23/17 09:15 Dose: 0.4 mg Medical - PN: A/P - Time Spent With Patient Total time spent is greater than 50% in coordination of care (as documented) at patient's floor/unit and/or counseling patient: 25 - 35 minutes - Narrative A/P Narrative: #1. GI. Patient presents with abdominal pain associated with nausea and vomiting, and probable dehydration. Symptoms are consistent with recurrent pancreatitis, although patient is also at risk for mesenteric ischemia, given his CT findings. -Patient was admitted and placed on bowel rest and IV fluids and pain meds. Today he is quite hungry and is really wanting to try solid food. I spent a fair amount of time reviewing with him and his family that to start on solid food at this point, would probably aggravate his pancreas. Amylase and lipase were both a bit higher today than yesterday, after starting a clear liquid diet. Even though his pain is improved, I think this might be pushing our luck. After some discussion, he agrees to stay on a clear liquid diet for today, and continue to receive IV fluids and IV pain meds. -He is also at high risk for mesenteric ischemia. I think a follow-up with Dr. Byrd at some point would be appropriate. 2. Infectious disease. Patient does present with leukocytosis. We have no obvious source of infection at this time. This is resolved today. 3. Renal. Patient presents with acute renal insufficiency. This is likely due to poor oral intake. Creatinine is back to normal today. BUN is improved. He is somewhat hyponatremic today. Continue to monitor. 4. Cardiac. Patient reports chronic intermittent right-sided chest pain. He reports previous cardiac workup was negative. It is not clear to me if he has been worked up for PE in the past. He may be at risk for this. -Consider d-dimer and CT angiogram, although I would wait a couple of days before giving him more dye, and given his renal function. He has not had recurrent chest pain. 5. Hypertension. Continue metoprolol. Lisinopril on hold, as this can also trigger pancreatitis. Blood pressure is reasonably well controlled at this time. 6. Vascular. Patient presents with evidence of mesenteric arterial stenosis. He also has an aortic aneurysm noted on his CT scan, and that will need to be followed up in 6- 12 months. 7. Tobacco abuse. -patient needs to be discouraged from doing any smoking at all at this point. 8. CODE STATUS: Full code. 9. DVT prophylaxis: Subcu heparin. 10. Endocrine. Patient presents with hyperglycemia and a mildly elevated hemoglobin A1c. Check Accu-Cheks and cover with sliding scale insulin as needed. He may have declining pancreatic function. Glucoses are ranging 88-117.
[2017-03-23] MEDS: 0.9 % SODIUM CHLORIDE 1,000 ML IV SCH (17:34)
[2017-03-23] MEDS: HYDROmorphone 2 MG/ML SYRINGE IV PRN (23:56)
[2017-03-24] MEDS: oxyCODONE HCL 5 MG TABLET PO PRN ×2 (02:15→09:28)
[2017-03-24 05:30] LABS: Basophils # (Auto) 0.1 K/mcL (0.0-0.3); Basophils % (Auto) 0.5 % (0.0-2.0); Eosinophils # (Auto) 0.2 K/mcL (0.0-0.7); Eosinophils % (Auto) 2.4 % (0.0-7.0); Granulocytes % (Auto) 57.4 % (38.0-78.0); Lymphocytes # (Auto) 3.1 K/mcL (1.5-4.8); Lymphocytes % (Auto) 30.5 % (15.5-49.0); Mean Cell Volume 91.8 fL (80.0-100.0); Mean Corpuscular HGB Conc 33.4 g/dL (31.0-36.0); Mean Corpuscular Hemoglobin 30.7 pg (26.0-34.0); Monocytes # (Auto) 0.9 K/mcL (0.1-0.9); Monocytes % (Auto) 9.2 % (1.0-12.0); Platelet Count 333 K/mcL (140-440); RBC 4.64 M/mcL (4.50-5.90); Red Cell Distribution Width 12.9 % (11.5-14.5)
[2017-03-24] MEDS: 0.9 % SODIUM CHLORIDE 1,000 ML IV SCH (05:41)
[2017-03-24 05:47] LABS: Amylase 119 U/L (28-100); Lipase 114 U/L (7-60)
[2017-03-24 05:49] LABS: ALT/SGPT 32 U/l (0-40); Albumin 3.5 gm/dL (3.2-5.2); Albumin/Globulin Ratio 1.2 (1.0-2.3); Alkaline Phosphatase 74 U/L (39-117); Bilirubin,Direct < 0.2 mg/dL (0.0-0.3); Blood Urea Nitrogen 16 mg/dl (6-20); Gamma Glutamyl Transpeptidase 55 U/L (8-61); Uric Acid 7.4 mg/dL (2.5-8.0)
[2017-03-24] MEDS: 0.9 % SODIUM CHLORIDE 10 ML SYRINGE IV SCH (06:11)
[2017-03-24] MEDS: HYDROmorphone 2 MG/ML SYRINGE IV PRN (07:18)
[2017-03-24] MEDS: INSULIN LISPRO 1 UNIT/0.01 ML UNIT SQ SCH ×2 (07:23→12:16)
[2017-03-24] MEDS: PANTOPRAZOLE 40 MG VIAL IV SCH (07:51)
[2017-03-24] MEDS: ASPIRIN 81 MG TAB.CHEW PO SCH (09:28)
[2017-03-24] MEDS: TAMSULOSIN 0.4 MG CAPSULE PO SCH (09:28)
[2017-03-24] MEDS: LISINOPRIL 20 MG TABLET PO SCH (09:28)
[2017-03-24] MEDS: METOPROLOL TARTRATE 25 MG TABLET PO SCH (09:28)
[2017-03-24] MEDS: HEPARIN 5,000 UNIT/ML VIAL SQ SCH (09:29)
--- NOTE | 2017-03-24 13:34 | Discharge Summary ---
Medical - DS: Prov Patient information: Note initiated : 03/24/17 at 1:30 pm Patient: Dave Patricio 56 y/o M admitted on 03/23/17 for N/V Abd Pain/ Pancreatitis. Date of admission: 03/23/17 14:48 Discharge date: 03/24/17 Primary care physician: LAN Perry Admitting clinician: Sylvain Lentz Attending physician on discharge: Elsa Wild Medical - DS: Meds - Discharge Medications Prescriptions: Metoprolol Tartrate [Lopressor] 25 mg PO BID #60 tablet Active and Home Medications: Discharge medications: Tylenol 650 mg every 6 hours as needed Aspirin 81 mg daily Lisinopril 20 mg daily Metoprolol 25 mg p.o. twice daily Oxycodone 5 mg p.o. every 4 hours as needed Flomax 0.4 mg p.o. daily Previous home Medications: Lisinopril [Zestril] 20 mg PO DAILY 11/25/16 [History Confirmed 03/22/17 Last Taken 03/21/17 08:30] oxyCODONE HCL [Oxycodone HCl] 5 mg PO TID 11/25/16 [History Confirmed 03/22/17 Last Taken 03/19/17] Tamsulosin [Flomax] 1 capsule PO DAILY 03/22/17 [History Confirmed 03/22/17 Last Taken 03/20/17 20:00 1 cap] Medical - DS: Hosp Hospital course: Mr. Patricio is a 56 year old M March 21, 2017: History of present illness: Mr. Patricio is a 56 year old Male with h/o pancreatic divisum presents to the hospital with h/o abdominal pain, nausea and vomiting x 3 days. The patient has chr and intermittent episodes of abdominal pain, which he attributes to his pancreas abnormality. The last flare up they found stones in the pancreatic duct, and he had a stent placed. The patient was doing fine untill 3 days ago when he noted pain in the abdomen, bakari umbilical, sharp, intermittent radiating to the back, worse with legs bended/ curled, better when lying flat. Associated with some nausea and vomiting. No blood in vomit. Given that the patient symptoms were not getting better over 3 days he decided to come to the ER for further evaluation . In the ER he had mildly elevated lipase at 125, elevated wbc at 14K, elevated hb (which appears concentrated) mildly elevated renal function creat of 1.4. His CT abdomen was negative for acute pancreatitis, and the stent was functioning properly. The patient given was unable to tolerate po and was still in pain was admitted to the hospital for further management. The patient also admitted to having chr chest pains, on the retrosternal, sharp , pressure like, non radiating, no aggravating or reliving factors, last episode was this AM. The patient had another episode of chest pain in the ER after my initial eval, his ECG was negative for acute ST wave changes. and he was given ASA and NTG with some relief. Trop was ordered and he was admitted to [facility]. The patient reports that these episodes are chr for him going on for few years, he has had a stress test done in the last 2 years which was negative. March 22: Today, the patient notes he continues to have fairly significant abdominal pain , which he rates as 8 out of 10. He says, however, that he usually has high level chronic abdominal pain. He does not really seem certain if the pain is better than yesterday. He is quite insistent about being started on a clear liquid diet, as he feels like he is starving. He otherwise has not had recurrent nausea, vomiting, diarrhea. He notes that he has had chronic abdominal pain for years, since he was diagnosed with chronic pancreatitis. He was treated with a pancreatic duct stent about 2 months ago, and says his pain seem like it is gotten a lot better since then, until he was readmitted here. CT scan also is suggestive of compromised mesenteric artery blood flow. The patient does not think that anyone has suggested doing anything about that so far. His pain usually is after eating, but that has always been thought due to the pancreatitis. The pain this time is similar to previous bouts of pancreatitis. Otherwise, he denies subjective fever or chills. He does continue to have chronic intermittent right-sided chest pain. He reports he has had previous cardiac workup that was negative. He denies shortness of breath or cough, vomiting or diarrhea, dysuria. March 23: Today, the patient says he is feeling a bit better. He is really wanting to eat solid food. He rates his pain as a 6 or 7 out of 10, which he said is better than when he arrived. He did have a bowel movement earlier today. He otherwise denies fever or chills, chest pain or shortness of breath, nausea or vomiting, diarrhea, dysuria. March 24, 2017: Hospital course: This patient was admitted with an acute flare of chronic pancreatitis. He had increasing pain, nausea and vomiting. He was made n.p.o., and started on IV fluids and IV pain medications. His pain has gradually improved, and today he rates it as about a 6 out of 10, which she says is nearing his baseline. He was quite insistent on eating regular food today, and also discharging to home, as there has to be someone there to watch his daughter. He did have a soft bland diet for lunch, and says he is tolerating that just fine. Patient CT scan did show signs of compromised mesenteric vasculature, so there is also a question of bowel ischemia. He was started on both metoprolol and aspirin, and seems to be tolerating these. Labs were consistent with acute kidney injury as well. This has resolved. Today, the patient notes his pain is improving quite a bit. He denies fever or chills, chest pain or shortness of breath or palpitations, nausea or vomiting, diarrhea or constipation, dysuria. On exam he does not appear to be in any acute distress. Temperature 97.7 heart rate 68 respiratory rate 20 blood pressure 158/114-120 7/ 89. O2 saturation 96% on room air Neck is supple without obvious lymphadenopathy or JVD. Cardiac exam shows regular rate and rhythm. Lungs are clear to auscultation. Abdomen is soft, with fairly minimal epigastric tenderness, without guarding or rebound. Bowel sounds are active. Extremities: Show no significant edema. Neurologic exam is grossly nonfocal. Assessment and plan: #1. GI. Patient presents with abdominal pain associated with nausea and vomiting, and probable dehydration. Symptoms are consistent with recurrent pancreatitis, although patient is also at risk for mesenteric ischemia, given his CT findings. -Patient was admitted and placed on bowel rest and IV fluids and pain meds. He has not been wanting to stay n.p.o. for very long. He did try some solid food today, and so far has tolerated that, and is quite insistent about going home, so will be discharged today. He is encouraged to stay with an extremely light diet for the next few days, to avoid aggravating his pain. -He tells me he has follow-up with GI in about a week I believe, to remove the pancreatic stent. -He is also at high risk for mesenteric ischemia. I think a follow-up with Dr. Byrd at some point would be appropriate. 2. Infectious disease. Patient does present with leukocytosis. This has resolved. 3. Renal. Patient presents with acute renal insufficiency. This is likely due to poor oral intake. Creatinine is back to normal today. 4. Cardiac. Patient reports chronic intermittent right-sided chest pain. He reports previous cardiac workup was negative. It is not clear to me if he has been worked up for PE in the past. He may be at risk for this. He has not had recurrent chest pain. -He appears to be at risk for coronary disease, given that he appears to have vascular disease of his bowel arterial system. He was started on both metoprolol and aspirin while here, and seems to be tolerating that. 5. Hypertension. Continue metoprolol. Continue lisinopril. Continue aspirin. 6. Vascular. Patient presents with evidence of mesenteric arterial stenosis. He also has an aortic aneurysm noted on his CT scan, and that will need to be followed up in 6- 12 months. 7. Tobacco abuse. -patient needs to be discouraged from doing any smoking at all at this point. 8. CODE STATUS: Full code. 9. DVT prophylaxis: Subcu heparin. 10. Endocrine. Patient presents with hyperglycemia and a mildly elevated hemoglobin A1c. Glucoses are ranging 88-117. Discharge diagnosis: Acute on chronic pancreatitis. - Time Spent with Patient Total time spent providing and/or coordinating discharge services: Greater than 30 minutes Medical - DS: Exam - Constitutional Vitals: Vital Signs Temp Pulse Resp BP BP Pulse Ox 03/24/17 12:00 97.7 F 20 158/114 96 03/24/17 08:00 98.4 F 18 150/90 94 03/24/17 04:00 98.4 F 68 18 140/86 96 03/23/17 23:45 97.1 F 68 17 127/89 99 03/23/17 20:00 98.3 F 84 18 146/81 97 03/23/17 16:00 99.0 F H 71 18 123/64 93 Intake and Output 03/23/17 03/24/17 03/24/17 21:59 05:59 13:59 Intake Total 1739 / 1739 1440 / 1440 Output Total 825 / 825 700 / 700 Balance 914 / 914 740 / 740 Intake: IV 859 / 859 1000 / 1000 Sodium Chloride 0.9% 1, 1000 / 1000 000 ml @ 84 mls/hr IV . [id number] [facility] Rx#: [id number] Potassium Chloride 10 Meq 859 / 859 In Sodium Chloride 0.45% 1,000 ml @ 125 mls/hr IV [id number] [facility] Rx#:[id number] Oral 880 / 880 440 / 440 Output: Void Amount 825 / 825 700 / 700 Other: # Bowel Movements 1 Weight 193 lb 3.2 oz Medical - DS: Data Labs on day of discharge: Labs from last 24 hours 03/24/17 03/24/17 03/24/17 03:47 03:47 03:47 WBC 10.2 RBC 4.64 Hgb 14.2 Hct 42.6 MCV 91.8 MCH 30.7 MCHC 33.4 RDW 12.9 Plt Count 333 MPV 8.3 Gran % 57.4 Lymph % (Auto) 30.5 Carter % (Auto) 9.2 Eos % (Auto) 2.4 Baso % (Auto) 0.5 Gran # 5.8 Lymph # (Auto) 3.1 Carter # (Auto) 0.9 Eos # (Auto) 0.2 Baso # (Auto) 0.1 Sodium 137 Potassium 4.4 Chloride 101 Carbon Dioxide 24 Anion Gap 12.0 BUN 16 Creatinine 0.8 GFR Calculation 100 Glucose 106 H Uric Acid 7.4 Calcium 8.5 L Phosphorus 2.2 L Magnesium 2.0 Total Bilirubin 0.8 Direct Bilirubin < 0.2 GGT 55 AST 23 ALT 32 Alkaline Phosphatase 74 Lactate Dehydrogenase 139 Total Protein 6.4 Albumin 3.5 Globulin 2.9 Albumin/Globulin Ratio 1.2 Triglycerides 138 Amylase 119 H Lipase 114 H March 22: Hemoglobin A1c is elevated at 6.7%. Triglycerides are elevated at 215, total cholesterol 169, LDL 93, HDL 34 Amylase elevated at 104 Lipase elevated at March 21: CBC: White blood cell count 14,000, hemoglobin 17, hematocrit 53, granulocyte count 10,600. Abdominal CT: Shows pancreatic stones, as well as a new short double pigtail pancreatic stent into the accessory pancreatic duct. It appears to be functioning. No other signs of inflammation. 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 3.7 cm suprarenal abdominal aortic aneurysm. 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 Increased risk for mesenteric ischemia. Chest x-ray: Was read as normal. Lactic acid was normal at 1.5 Pro-calcitonin is normal at 0.14 Urinalysis shows 100 mg of protein, 2 red blood cells, 10 granular casts, negative leukocyte esterase and nitrites. EKG shows normal sinus rhythm at a rate of about 90. Normal axis. Fairly frequent ectopy, probable PVCs. Tox screen: Is positive for opiates, amphetamines, benzodiazepines, marijuana Chemistry panel: Sodium 131, potassium 4.3, chloride 92, CO2 21, anion gap is elevated at 18, BUN is elevated at 33, creatinine 1.4, glucose 182 Lipase is elevated at 155 Medical - DS: A/P - Patient/Caregiver Discharge Instructions Activity: increase activity as tolerated Diet: Low Fat, Full Liquid Additional Instructions: 1. GI. -Acute pancreatitis. Please follow-up very light diet, or even a liquid diet, for the next few days, until you are sure you can tolerate food. Lots of fluids. -Possible mesenteric ischemia. Please notify your doctors that your CAT scan shows blockages of the arteries in your bowel, and this night may need to be further evaluated. You have been started on both aspirin and metoprolol, to help prevent clots. You should consider quitting smoking. Discharge medications: Tylenol 650 mg every 6 hours as needed Aspirin 81 mg daily Lisinopril 20 mg daily Metoprolol 25 mg p.o. twice daily Oxycodone 5 mg p.o. every 4 hours as needed Flomax 0.4 mg p.o. daily Prescriptions: Metoprolol Tartrate [Lopressor] 25 mg PO BID #60 tablet - Follow up Plan Follow up with: Mark Salazar ARNP [Primary Care Provider] - 03/27/17 (Keep your scheduled appointment on .) Disposition: Home, Self-Care Prognosis: Good Rehab Potential: Good I certify that the patient requires SNF services: No Overall status at discharge: patient is progressing back to baseline
== END 2017-03-24 14:32 | disposition home or self-care (01) | DRG 439 ==
LOC: ED 16:18 → SUATTDRO 21:40 → MEDSUR 21:40 → INTOOBSV 21:40 → MEDSUR 21:46 → ICU 23:45
PROVIDERS: ADMIT Internal Medicine; ATTEND Internal Medicine